=== PATIENT | female | born 1985 | race Caucasian/White ===

== ENCOUNTER 2016-08-27 21:18 | Inpatient (IN) | payer OTHER ==
--- NOTE | ~2016-08-27 | HP ---
Unit #: [id number] #: [id number] Patient: JENN DUTTA [id number] [place] [address] [id number] MR#: [id number] NAME: JENN DUTTA ROOM: P182 Age: 30 Sex: F Admission Date: 08/27/2016 : 1985 Attending Physician: Roger Ny M.D. Admitting Physician: Roger Ny M.D. Primary Care Physician: Primary Care Physician No HISTORY AND PHYSICAL HISTORY OF PRESENT ILLNESS Jenn is a 30 year old admitted to [facility] after reporting auditory hallucinations. PAST MEDICAL HISTORY 1. History of opioid and amphetamine abuse. 2. Asthma. PAST SURGICAL HISTORY Breast augmentation. The patient reports that one of the implants has ruptured. ALLERGIES Penicillin, codeine. SOCIAL HISTORY Smokes greater than one pack per day. Denies alcohol. Admits to a long history of illicit substance abuse. FAMILY HISTORY Medically noncontributory. REVIEW OF SYSTEMS CONSTITUTIONAL: No fever or chills. HEENT: Denies any sore throat, ear pain or runny nose. CARDIOVASCULAR: Denies chest pain, irregular heart rhythm or palpitations. CHEST: Denies shortness of breath or cough. No hemoptysis. GASTROINTESTINAL: Denies nausea, vomiting, diarrhea or chronic constipation. ENDOCRINE: Denies history of increased thirst or urination. No recent significant weight loss or gain. GENITOURINARY: Denies dysuria, frequency, or hematuria. SKIN: Denies any rashes. HEMATOLOGIC: Denies history of increased bleeding or bruising. MUSCULOSKELETAL: Denies any hot, swollen joints. No generalized muscle pain. NEUROLOGIC: Denies problems with vision or speech. No frequent, severe headaches. No numbness, tingling or weakness in any extremities. Denies loss of bladder or bowel control. CURRENT MEDICATIONS 1. Paxil 20 mg q day 2. Nicorette gum p.r.n. Unit #: [id number] #: [id number] Patient: JENN DUTTA 3. Protonix 40 mg q day 4. Mobic 15 mg q day 5. Milk of Magnesia p.r.n. 6. Maalox p.r.n. 7. Tylenol p.r.n. 8. Zyprexa 10 mg q.h.s. 9. Amitriptyline 50 mg q.h.s. PHYSICAL EXAMINATION GENERAL: Alert, well-nourished, in no apparent distress. VITAL SIGNS: Blood pressure 100/56, heart rate 80, respirations 16, temperature 98.6. WEIGHT: 121 pounds. HEIGHT: 5'2". SKIN: Warm and dry without rash or lesion. HEENT: Normocephalic. TMs not viewed. Oral and nasal passages clear. Conjunctivae clear. Pupils equal, round and reactive to light and accommodation. Extraocular movements intact. NECK: Supple without lymphadenopathy or thyromegaly. HEART: Regular rate and rhythm without murmur. LUNGS: Clear. ABDOMEN: Soft, nontender. : Not done. EXTREMITIES: No evidence of cyanosis, clubbing or edema. Moves all extremities without focal deficit. NEUROLOGICAL: Grossly within normal limits. Cranial Nerves: II: Visual landers are intact. III, IV AND : Extraocular movements are intact. Pupils are equal, round and reactive to light. V: Facial sensation is grossly normal. VII: Facial movements and expression are normal. VIII: Auditory acuity grossly intact. IX, X: Uvula is midline. Phonation is normal. XI: Patient shrugs shoulders and turns head normally. XII: Tongue protrudes in the midline. Sensory and Motor Function: Sensory and motor sensation is grossly normal. Motor: moves all extremities well. Coordination: Gait is normal. Deep Tendon Reflexes: Intact. IMPRESSION Psychiatric admission. RECOMMENDATIONS PSYCHIATRIC: Per psychiatrist. MEDICAL: I see no contraindications to participating in facility's activities. MEDICAL PROGNOSIS Good. MEDICAL CONDITION Stable. Dictated by... Magalys Thorne P.A.-C. for Lizz Stern M.D. Unit #: [id number] #: [id number] Patient: JENN DUTTA ADI/tree TD: 08/29/2016 01:50 JOB #: [id number] HISTORY AND PHYSICAL Page 1 of 1 X Magalys Thorne HISTORY AND PHYSICAL
--- NOTE | ~2016-08-27 | PA ---
Unit #: [id number] #: [id number] Patient: ANNELIESE DUTTA [id number] [place] [address] [id number] I MR#: [id number] NAME: ANNELIESE DUTTA ROOM: P182 Age: 30 Sex: F Admission Date: 08/27/2016 : 1985 Date of Assessment: 08/28/2016 Attending Physician: Roger Ny M.D. Admitting Physician: Roger Ny M.D. Primary Care Physician: Primary Care Physician No PSYCHIATRIC ASSESSMENT LOCATION [facility], room 10, bed #1. DATE OF SERVICE 08/28/2016. INFORMANTS The patient and chart, both reliable. CHIEF COMPLAINT "I've needed my medications." HISTORY OF PRESENTING ILLNESS This is a 30-year-old white female, admitted after being transferred from [facility] for 72-hour hold for reporting auditory and visual hallucinations. The patient having vague issues with seeing and hearing things over the last several days since she had been off her medications as well as depression and making comments of being better off if she has to live like this. The patient apparently had been there 3 times in a week trying to get aid with her medications, but had not been able to maintain them and has no outpatient followup care. The patient has been at [facility] for about the last 3 to 4 weeks in an attempt to get help for substance abuse that she has been court mandated for, but because she needs psychiatric medication she could enter their program and be on medication at the same time and she was in a bit of a conundrum of as how to take care of the situation regardless. The patient is seen today and still very anxious, dysphoric, hopeless about the situation. Notes that when she is on her medications which were started in [facility] by the way, she does better, but still continues to have auditory and visual hallucinations and depression and anxiety symptoms from time to time. Overall, the patient notices when she is off her medications, she says she is much worse, but are better when she is in treatment if not sufficiently as so. She still vague about being suicidal in terms of being better off if she had to live like this. She is goal focused to get this under control and get into a treatment program, so she can return home with her family and is very concerned about delaying that process even though she has apparently been delayed the last 3 weeks by simply not being able to enter the substance abuse program at the [facility]. The patient reports she has not used any substances since May for which she has a history of opioid and methamphetamine dependency, but does note that she is still having problems with cravings and concern for relapse. Overall, the patient still appears very unstable, still vague about her auditory and visual hallucinations, but Unit #: [id number] #: [id number] Patient: ANNELIESE DUTTA does look around the room frequently while I am talking to her, but overall was able to pay general good attention and focus when the questions were asked. Staff reports she has been compliant with care, but seems to psychomotor agitated. The patient had a lengthy discussion about the need for treatment and proper followup care, will hopefully have a group social worker to get her into the proper program for both her mental health issues as well as her chemical dependency, for which she was in agreement at this point. However, she does still remain on 72-hour hold because of limited insight and a flight risk. PAST MEDICAL ISSUES Nothing of significance. PAST PSYCHIATRIC HISTORY No previous psychiatric admissions. Chemical dependency issues as noted above. No significant issues with withdrawal per patient. The patient was on methadone in the past for treatment, but does not want to restart and has been off it for several months now. Overall, no overt history of HI or SI, but does have an issue of mood imbalance and psychosis that were first treated when she was in [facility] and they do not seem to be related and have been independent of each other regardless of how good her mood is or what the nature of psychosis are, they are not bound together and apparently they have been going on for several years now. SOCIAL HISTORY The patient has essentially been living in [facility] per court order. It is unclear about the true grounds of this, but regardless will be looked into. She said she is . She has 3 children and good support through family who are not local. FAMILY HISTORY Significant for widespread chemical dependency on both sides, beyond that noncontributory. ALLERGIES Include penicillin, lidocaine, and codeine. PHYSICAL EXAMINATION VITAL SIGNS: Current vital signs in the hospital include blood pressure of 128/89, pulse of 89, respiratory rate 16, temperature 97.6 degrees Fahrenheit as recorded. CURRENT MEDICATIONS Include her home doses of Protonix 40 mg daily, Paxil 10 mg daily, Mobic 15 mg in the morning, Zyprexa 10 mg at bedtime, amitriptyline 50 mg at bedtime, and NicoDerm patch transdermally daily. The patient is also having standard p.r.n. in addition to these. MENTAL STATUS EXAMINATION General appearance, has limited groomed, thin white female, appears older than stated age. Positive psychomotor agitation noted globally, but good responsiveness and focus. Despite this, speech was clear and well prosody. Mood was anxious and dysphoric with an agitated affect. Thought process and content were somewhat tangential at times, but appropriate vague SI, but no HI. The patient reporting to have auditory "hallucinations," but still unclear what that exactly means other than maybe potentially she is hearing distracted voices. Memory was generally intact. Associations were loose at times. Alert and oriented x4. Unit #: [id number] #: [id number] Patient: ANNELIESE DUTTA Cognitive functioning is at baseline. Insight and judgment seems to be poor. ASSETS Include motivation for treatment for chemical dependency. LIABILITIES Include no current outpatient provider, essentially homeless, court involvement, no sustained treatment beyond [facility]. ADMITTING DIAGNOSES Schizoaffective disorder, depressed type. Generalized anxiety disorder. Opioid dependency. Other stimulant dependency. PSYCHIATRIC PLAN Psychiatric plan is to continue patient's admission for safety and stabilization for ongoing psychotic symptoms as vague as they are as well as suicidal ideation and unstable mood. The patient will be continued on home medications with the discontinuation of the amitriptyline and having the Paxil increased to 20 mg daily include for better mood stabilization. The patient reported when she missed her amitriptyline, she actually felt better in terms of resting. Rest of her medications will stay as is with possible plan to increase the Zyprexa in the future. Treatment goals will be for resolution of the symptoms in a controlled fashion as well as establishment of a good CD program for the patient to go to that will allow her to maintain her psychiatric care in addition to meet court ordered mandated treatment of her chemical dependency issues. This has already been explained to [facility] and they are involved in case. Discharge planning will be same as above in terms of final disposition for after care both from psychiatric and CD issues, most likely the resources and/or specific programs yet to be determined. Estimated length of stay is approximately 3 to 5 days, pending patient's progress and response to treatment. The patient remains 72-hour hold at this time. Dictated by... Robert Moya/thierry TD: 08/29/2016 06:23 JOB #: [id number] PSYCHIATRIC ASSESSMENT Page 1 of 1 X Roger Ny MD X PSYCHIATRIC ASSESSMENT
--- NOTE | ~2016-08-27 | HP ---
Unit #: [id number] #: [id number] Patient: JENN DUTTA [id number] [place] [address] [id number] I MR#: [id number] NAME: JENN DUTTA ROOM: P182 Age: 30 Sex: F Admission Date: 08/27/2016 : 1985 Attending Physician: Roger Ny M.D. Admitting Physician: Roger Ny M.D. Primary Care Physician: Primary Care Physician No HISTORY AND PHYSICAL HISTORY OF PRESENT ILLNESS Jenn is a 30 year old admitted to [facility] after reporting auditory hallucinations. PAST MEDICAL HISTORY 1. History of opioid and amphetamine abuse. 2. Asthma. PAST SURGICAL HISTORY Breast augmentation. The patient reports that one of the implants has ruptured. ALLERGIES Penicillin, codeine. SOCIAL HISTORY Smokes greater than one pack per day. Denies alcohol. Admits to a long history of illicit substance abuse. FAMILY HISTORY Medically noncontributory. REVIEW OF SYSTEMS CONSTITUTIONAL: No fever or chills. HEENT: Denies any sore throat, ear pain or runny nose. CARDIOVASCULAR: Denies chest pain, irregular heart rhythm or palpitations. CHEST: Denies shortness of breath or cough. No hemoptysis. GASTROINTESTINAL: Denies nausea, vomiting, diarrhea or chronic constipation. ENDOCRINE: Denies history of increased thirst or urination. No recent significant weight loss or gain. GENITOURINARY: Denies dysuria, frequency, or hematuria. SKIN: Denies any rashes. HEMATOLOGIC: Denies history of increased bleeding or bruising. MUSCULOSKELETAL: Denies any hot, swollen joints. No generalized muscle pain. NEUROLOGIC: Denies problems with vision or speech. No frequent, severe headaches. No numbness, tingling or weakness in any extremities. Denies loss of bladder or bowel control. CURRENT MEDICATIONS Unit #: [id number] #: [id number] Patient: JENN DUTTA 1. Paxil 20 mg q day 2. Nicorette gum p.r.n. 3. Protonix 40 mg q day 4. Mobic 15 mg q day 5. Milk of Magnesia p.r.n. 6. Maalox p.r.n. 7. Tylenol p.r.n. 8. Zyprexa 10 mg q.h.s. 9. Amitriptyline 50 mg q.h.s. PHYSICAL EXAMINATION GENERAL: Alert, well-nourished, in no apparent distress. VITAL SIGNS: Blood pressure 100/56, heart rate 80, respirations 16, temperature 98.6. WEIGHT: 121 pounds. HEIGHT: 5'2". SKIN: Warm and dry without rash or lesion. HEENT: Normocephalic. TMs not viewed. Oral and nasal passages clear. Conjunctivae clear. Pupils equal, round and reactive to light and accommodation. Extraocular movements intact. NECK: Supple without lymphadenopathy or thyromegaly. HEART: Regular rate and rhythm without murmur. LUNGS: Clear. ABDOMEN: Soft, nontender. : Not done. EXTREMITIES: No evidence of cyanosis, clubbing or edema. Moves all extremities without focal deficit. NEUROLOGICAL: Grossly within normal limits. Cranial Nerves: II: Visual landers are intact. III, IV AND : Extraocular movements are intact. Pupils are equal, round and reactive to light. V: Facial sensation is grossly normal. VII: Facial movements and expression are normal. VIII: Auditory acuity grossly intact. IX, X: Uvula is midline. Phonation is normal. XI: Patient shrugs shoulders and turns head normally. XII: Tongue protrudes in the midline. Sensory and Motor Function: Sensory and motor sensation is grossly normal. Motor: moves all extremities well. Coordination: Gait is normal. Deep Tendon Reflexes: Intact. IMPRESSION Psychiatric admission RECOMMENDATIONS PSYCHIATRIC: Per psychiatrist. MEDICAL: I see no contraindications to participating in facility's activities. MEDICAL PROGNOSIS Good. MEDICAL CONDITION Stable. Unit #: [id number] #: [id number] Patient: JENN DUTTA Dictated by... Magalys Thorne P.A.-C. for Robert Ellison/tree TD: 08/28/2016 21:34 JOB #: [id number] HISTORY AND PHYSICAL Page 1 of 1 X Magalys Thonre HISTORY AND PHYSICAL
--- NOTE | ~2016-08-27 | DS ---
Unit #: [id number] #: [id number] Patient: ANNELIESE DUTTA [id number] [facility] [address] [place] [address] [id number] I MR#: [id number] NAME: ANNELIESE DUTTA ROOM: P182 Age: 30 Sex: F Admission Date: 08/27/2016 : 1985 Discharge Date: 08/29/2016 Attending Physician: Roger Ny M.D. Primary Care Physician: Primary Care Physician No DISCHARGE SUMMARY REASON FOR ADMISSION Psychosis with auditory and visual hallucinations of vague nature with vague suicidal ideation and substance abuse including amphetamines and opiate dependence as well as general anxiety disorder. DIAGNOSTIC STUDIES PERTINENT LABORATORY DATA: Patient had routine blood work done during this hospitalization which included a TSH which was normal at 0.66 and free T4 normal at 0.75. No other labs were performed. HOSPITAL COURSE The patient was admitted for safety and stabilization for issues with hallucinations and vague suicidal ideations. The patient had been transferred here from [facility] emergency room where she had been placed on 72 hour hold making comments about being better off if she had to live like this. Patient had reported she had been at the [facility] for issues with detox. Actually, had been sober for several months but was having difficulty keeping and maintaining her medications and because she was not allowed to maintain them while in the CD program there she was having difficulty finding the balance between her need for CD treatment and psychiatric care. She was feeling overwhelmed and frustrated when she went to [facility] and had to be sent here. Patient responded quickly to being back on her medications which included Zyprexa 10 mg at nighttime and Paxil. However, the Paxil was increased to 20 mg daily and patient responded appropriate. At time of discharge, the patient was denying any SI or HI. Her mood was very improved. She had good eye contact. Energy and affect were brighter. She was more focused on returning outpatient to the homeless custodial here in [place] as well as following up at [facility]. She denied any new issues or side effects. She was denying any psychosis at this point and was overall much more goal-oriented. It was felt patient had reached maximum benefit from course and she had been compliant while on the unit. No issues with management were ever needed and patient was felt ready to discharge from the hospital. Patient was offered additional aftercare options but she declined them at this time. DISCHARGE DIAGNOSES 1. Schizoaffective disorder, depressed type. 2. Generalized anxiety disorder. 3. Opiate dependency. 4. Other stimulant dependency. [facility] Unit #: [id number] #: [id number] Patient: ANNELIESE DUTTA Followup with the [facility] for psychiatric care as well as community resources. Patient planned to go to [facility] following discharge. DISCHARGE MEDICATIONS 1. Zyprexa 10 mg at bedtime for mood stabilization and psychotic symptoms. 2. Paxil 20 mg daily by mouth for depression and anxiety. CONDITION AT DISCHARGE Improving. PROGNOSIS Guarded given the patient's limited resources locally and failure to maintain outpatient care previously. DIET AND ACTIVITY Diet is regular. Activity is as tolerated with sobriety encouraged and compliance with our outpatient recommendations. There are no other additional issues at this time. Dictated by... Roger Ny M.D. JUAN/selene TD: 08/29/2016 15:23 JOB #: [id number] DISCHARGE SUMMARY Page 1 of 1 X Roger Ny MD X DISCHARGE SUMMARY
[2016-08-28 09:45] LABS: THYROID STIMULATING HORMONE 0.66 uIU/ml (0.34-5.60)
[2016-08-28 09:52] LABS: FREE THYROXIN (T4) 0.75 ng/dL (0.58-1.64)
== END 2016-08-29 15:15 | disposition home or self-care (01) | DRG 885 ==
LOC: P1S 21:18 → POF 08-28 02:44 → P1S 08-28 02:50 → P1E 08-28 12:49
PROVIDERS: Psychiatry & Neurology Psychiatry
DX: F25.1 Schizoaffective disorder, depressive type (principal); F11.20 Opioid dependence, uncomplicated; F15.20 Other stimulant dependence, uncomplicated; F41.1 Generalized anxiety disorder; F17.200 Nicotine dependence, unspecified, uncomplicated; Z88.5 Allergy status to narcotic agent; Z88.0 Allergy status to penicillin
CPT/HCPCS: 84439; 84443